=== PATIENT | female | born 1985 | race Caucasian/White ===

== ENCOUNTER 2017-08-30 15:25 | Inpatient (IN) | payer MEDICAID ==
--- NOTE | 2017-08-30 16:18 | ED Physician Chart ---
ED Chief Complaint/HPI - Patient Information Date Seen:: 08/30/17 Time Seen:: 16:05 Chief Complaint:: abdominal pain History of Present Illness:: Patient developed right lower quadrant abdominal pain at 1600 yesterday. She has no vomiting or diarrhea. She denies dysuria. Ambulation increases the pain. She did not take her temperature. Her last normal menstrual period started 4 days ago. Allergies:: Allergies Allergy/AdvReac Type Severity Reaction Status Date / Time No Known Allergies Allergy Verified 08/30/17 16:04 Vitals:: Vital Signs - 8 hr 08/30/17 15:57 Temp 98.9 F HR 67 RR 16 BP 93/69 O2 Sat % 98 Historian:: Patient Review:: Nurse's Note Reviewed ED Review of Systems - Review of Systems General/Constitutional: No fever, No chills Skin: No skin lesions Head: No headache Eyes: No loss of vision ENT: No earache Neck: No neck pain Cardio Vascular: No chest pain, No palpitations Pulmonary: No SOB GI: Pain G/U: No dysuria, No frequency, No hematuria Environmental Marketer: No vaginal discharge, No abnormal vaginal bleed Endocrine: No polyuria, No polydipsia Psychiatric: No prior psych history Hematopoietic: No bruising Allergic/Immuno: Urticaria Neurological: No syncope ED Past Medical History - Past Medical History Past Medical History: No significant medical hx Family History: None Social History: Non Smoker, No Alcohol Surgical History: , other (2 sections) Psychiatricy History: None Medication: None Family Medical History - Family Member Mother History Unknown: Yes ED Physical Exam - Physical Examination General/Constitutional: Well-developed, well-nourished, Alert, No distress Head: Atraumatic Eyes: Lids, conjuctiva normal, PERRL Skin: Nl inspection, No rash, No skin lesions, No ecchymosis ENMT: External ears, nose nl, Oropharynx nl, Tonsils nl Neck: No nuchal rigidity Respiratory: Nl effort/Exclusion, Clear to Auscultation Cardio Vascular: RRR, No murmur, gallop, rubs GI: No organomegaly, No hernia, Normal BS's, Nondistended Other GI comments:: Right lower quadrant tenderness with rebound Other comments:: Bimanual pelvic exam: No cervical motion or adnexal tenderness; uterus not enlarged to palpation Extremities: Normal digits & nails Neuro/Psych: No focal deficits Misc: Normal back ED Labs/Radiology/EKG Results - Lab Results Results: Laboratory Results - last 24 hr 08/30/17 08/30/17 08/30/17 15:50 15:50 16:10 WBC 7.4 RBC 4.18 Hgb 12.9 Hct 38.3 L MCV 91.6 MCH 30.9 MCHC Differential 33.7 RDW 12.3 Plt Count 182 MPV 7.7 Neutrophils % 63.6 Lymphocytes % 25.3 Monocytes % 8.3 Eosinophils % 2.7 Basophils % 0.1 Sodium Potassium Chloride Carbon Dioxide Anion Gap BUN Creatinine Est GFR ( Amer) Est GFR (Non-Af Amer) BUN/Creatinine Ratio Glucose Calcium Magnesium Urine Source MIDSTREAM Urine Color YELLOW Urine Clarity CLEAR Urine pH 5.5 Ur Specific [place] >= 1.030 Urine Protein TRACE Urine Glucose (UA) NEGATIVE Urine Ketones TRACE Urine Blood MODERATE H Urine Nitrate NEGATIVE Urine Bilirubin SMALL H Urine Urobilinogen 0.2 Ur Leukocyte Esterase NEGATIVE Urine RBC 5-10 H Urine WBC NONE SEEN Ur Epithelial Cells FEW Urine Bacteria NONE SEEN Urine Test NEGATIVE 08/30/17 16:10 WBC RBC Hgb Hct MCV MCH MCHC Differential RDW Plt Count MPV Neutrophils % Lymphocytes % Monocytes % Eosinophils % Basophils % Sodium 133 L Potassium 3.5 Chloride 99 Carbon Dioxide 28.5 Anion Gap 9.0 BUN 9 Creatinine 0.5 L Est GFR ( Amer) > 60.0 Est GFR (Non-Af Amer) > 60.0 BUN/Creatinine Ratio 18.0 Glucose 78 Calcium 9.5 Magnesium 2.1 Urine Source Urine Color Urine Clarity Urine pH Ur Specific [place] Urine Protein Urine Glucose (UA) Urine Ketones Urine Blood Urine Nitrate Urine Bilirubin Urine Urobilinogen Ur Leukocyte Esterase Urine RBC Urine WBC Ur Epithelial Cells Urine Bacteria Urine Test Comments:: CT abdomen and pelvis showed prominent appendix with appendicolith and slight haziness of adjacent fat suggestive of appendicitis. - EKG Interpretations Rate & Rhythm: normal sinus rhythm [place]: normal axis ED Assessment - Assessment General Assessment: Patient rechecked twice last time at about 1745 in both eyes patient had right lower quadrant tenderness with rebound. I spoke to Dr. Marquez at 1750 and he wishes the patient admitted to the primary care doctor on-call and he will be a design sales consultant. Dr. Andersen paged at about [phone]. ED Septic Shock - <6hrs of presentation: Vital Signs: Vital Signs - 8 hr 08/30/17 15:57 Temp 98.9 F HR 67 RR 16 BP 93/69 O2 Sat % 98 ED Reassessment (Disposition) - Reassessment Reassessment Condition:: Unchanged - Diagnosis Diagnosis:: Acute appendicitis - Patient Disposition Admitted to:: Med/Surg Spoke to:: najma Andersen Admitting Medical Physician:: Najma Andersen Condition at Disposition:: Stable, Unchanged
[2017-08-30 16:20] LABS: URINE MICROSCOPIC INDICATED? YES; URINE SOURCE MIDSTREAM
[2017-08-30 16:22] LABS: % BASOPHILS 0.1 % (0.0-2.0); % EOSINOPHILS 2.7 % (0.0-5.0); % LYMPHOCYTES 25.3 % (20.0-50.0); % MONOCYTES 8.3 % (2.0-10.0); % NEUTROPHILS 63.6 % (40.0-80.0); EOSINOPHILE ABSOLUTE 0.2 Th/cmm (0.1-0.4); HEMATOCRIT 38.3 % (41.0-60); HEMOGLOBIN 12.9 gm/dL (12-16); LYMPHOCYTE ABSOLUTE 1.9 Th/cmm (1.5-3.0); MEAN CELL VOLUME 91.6 fl (81-100); MEAN CORPUSCULAR HEMOGLOBIN 30.9 pg (27.0-31.0); MEAN CORPUSCULAR HGB CONC 33.7 pg (28.0-36.0); MEAN PLATELET VOLUME 7.7 fl; MONOCYTE ABSOLUTE 0.6 Th/cmm (0.3-1.0); NEUTROPHILE ABSOLUTE 4.7 Th/cmm (1.8-8.0); PLATELET COUNT 182 Th/cmm (150-400); RED BLOOD COUNT 4.18 Mil/cmm (3.80-5.10); RED CELL DISTRIBUTION WIDTH 12.3 % (11.5-20.0); WHITE BLOOD COUNT 7.4 Th/cmm (4.8-10.8)
[2017-08-30 16:23] LABS: URINE BILIRUBIN SMALL (NEGATIVE); URINE BLOOD MODERATE (NEGATIVE); URINE GLUCOSE (UA) NEGATIVE (NEGATIVE); URINE KETONE TRACE mg/dL (NEGATIVE); URINE LEUKOCYTE ESTERASE NEGATIVE (NEGATIVE); URINE NITRATE NEGATIVE (NEGATIVE); URINE PH 5.5 (4.6 - 8.0); URINE PROTEIN TRACE mg/dL (NEGATIVE); URINE UROBILINOGEN 0.2 E.U./dL (0.2 - 1.0)
[2017-08-30 16:30] LABS: URINE CLARITY CLEAR (CLEAR); URINE COLOR YELLOW
[2017-08-30 16:35] LABS: URINE BACTERIA NONE SEEN /hpf (NONE SEEN); URINE EPITHELIAL CELLS FEW /lpf (FEW); URINE WBC NONE SEEN /hpf (0-5)
[2017-08-30 16:40] LABS: BUN - UREA NITROGEN 9 mg/dL (7-25); CALCIUM SERUM 9.5 mg/dL (8.6-10.3); CARBON DIOXIDE 28.5 mEq/L (21.0-31.0); CHLORIDE 99 mEq/L (98-107); CREATININE - SERUM 0.5 mg/dL (0.6-1.2); GFR AFRICAN-AMERICAN > 60.0 ml/min (>90); GFR NON AFRICAN-AMERICAN > 60.0 ml/min; GLUCOSE 78 mg/dL (70-105); MAGNESIUM 2.1 mg/dL (1.9-2.7); POTASSIUM SERUM 3.5 mEq/L (3.5-5.1); SODIUM SERUM 133 mEq/L (136-145)
[2017-08-30] MEDS ORDERED: Morphine Sulfate 4 mg/mL 1mL Syr ONE (18:01)
[2017-08-30] MEDS ORDERED: Sodium Chloride 0.9% 1,000 ML IV ONE (18:01)
[2017-08-30] MEDS ORDERED: Morphine Sulfate 4 mg/mL 1mL Syr IV STA (18:03)
[2017-08-30] MEDS ORDERED: Piperacillin Sodium/Tazobact 3.375 gm Vial IV ONE (18:12)
[2017-08-30] MEDS ORDERED: D5-0.45NS 1,000 ML IV SCH (18:45)
[2017-08-30] MEDS ORDERED: metroNIDAZOLE 500mg/NS 100mL 500 MG/100 ML BAG IV ONE (20:43)
[2017-08-30] MEDS: Morphine Sulfate 2 mg/mL 1mL Syr IV PRN (21:26)
[2017-08-30] MEDS: metroNIDAZOLE 500mg/NS 100mL 500 MG in Premix Fluid 1 BAG IV SCH (21:27)
[2017-08-31] MEDS: Morphine Sulfate 2 mg/mL 1mL Syr IV PRN ×3 (02:16→16:43)
[2017-08-31] MEDS ORDERED: metroNIDAZOLE 500mg/NS 100mL 500 MG/100 ML BAG IV ONE (03:42)
[2017-08-31 04:03] VITALS: BP 96/58
[2017-08-31] MEDS: metroNIDAZOLE 500mg/NS 100mL 500 MG in Premix Fluid 1 BAG IV SCH ×3 (04:55→20:45)
[2017-08-31 06:49] LABS: % BASOPHILS 0.1 % (0.0-2.0); % EOSINOPHILS 3.3 % (0.0-5.0); % LYMPHOCYTES 31.1 % (20.0-50.0); % MONOCYTES 11.1 % (2.0-10.0); % NEUTROPHILS 54.4 % (40.0-80.0); EOSINOPHILE ABSOLUTE 0.2 Th/cmm (0.1-0.4); HEMATOCRIT 35.4 % (41.0-60); HEMOGLOBIN 11.8 gm/dL (12-16); LYMPHOCYTE ABSOLUTE 1.7 Th/cmm (1.5-3.0); MEAN CELL VOLUME 91.3 fl (81-100); MEAN CORPUSCULAR HEMOGLOBIN 30.5 pg (27.0-31.0); MEAN CORPUSCULAR HGB CONC 33.4 pg (28.0-36.0); MEAN PLATELET VOLUME 7.7 fl; MONOCYTE ABSOLUTE 0.6 Th/cmm (0.3-1.0); NEUTROPHILE ABSOLUTE 2.9 Th/cmm (1.8-8.0); PLATELET COUNT 163 Th/cmm (150-400); RED BLOOD COUNT 3.88 Mil/cmm (3.80-5.10); RED CELL DISTRIBUTION WIDTH 12.5 % (11.5-20.0)
[2017-08-31 06:54] LABS: WHITE BLOOD COUNT 5.4 Th/cmm (4.8-10.8)
[2017-08-31 06:59] LABS: INR 0.96 (0.5-1.4)
[2017-08-31 07:06] LABS: ALB/GLOB RATIO 1.4 (1.0-1.8); ALBUMIN 3.7 gm/dL (3.7-5.3); ALKALINE PHOSPHATASE 36 U/L (34-104); ANION GAP 5.6 (7.0-16.0); BILIRUBIN,TOTAL 0.6 mg/dL (0.3-1.0); BUN - UREA NITROGEN 7 mg/dL (7-25); CALCIUM SERUM 8.4 mg/dL (8.6-10.3); CARBON DIOXIDE 28.1 mEq/L (21.0-31.0); CHLORIDE 103 mEq/L (98-107); CREATININE - SERUM 0.5 mg/dL (0.6-1.2); GFR AFRICAN-AMERICAN > 60.0 ml/min (>90); GFR NON AFRICAN-AMERICAN > 60.0 ml/min; GLUCOSE 92 mg/dL (70-105); MAGNESIUM 2.1 mg/dL (1.9-2.7); POTASSIUM SERUM 3.7 mEq/L (3.5-5.1); SGOT 12 U/L (13-39); SGPT/ALT 7 U/L (7-52); SODIUM SERUM 133 mEq/L (136-145); TOTAL PROTEIN,SERUM 6.3 gm/dL (6.0-8.3)
[2017-08-31] MEDS ORDERED: fentaNYL Citrate 100 mcg/2mL Vial ONE (07:28)
--- NOTE | 2017-08-31 08:23 | Diagnostic Imaging Report ---
Exam: CT examination abdomen pelvis. HISTORY: Right lower quadrant pain. Total DLP equals 389 CTDI equals 9.0. Findings: Multiple contiguous thin section of the abdomen pelvis obtained from lower thorax to pubic symphysis without administration intravenous contrast material no prior studies available comparison. The study demonstrates normal aeration of lung parenchyma the bases. The liver and spleen intact. The pancreas is normal. The gallbladder is distended. The joint glands are normal. The kidneys demonstrate no evidence of acute or nephrolithiasis. Large amount of fecal content is noted throughout the colon. There is evidence of acute appendicitis with 7 mm appendicolith impacted centimeter appendix. The uterus is normal. The urinary bladder is intact. Bony structures demonstrate no evidence for lytic or blastic process. IMPRESSION Acute appendicitis with 7mm appendicolith impacted in the proximal portion of appendix.
--- NOTE | 2017-08-31 08:25 | Diagnostic Imaging Report ---
Exam: Ultrasound examination of pelvis. HISTORY: Rectal portable pain. Findings: Real-time ultrasound summation of pelvis was performed multiple planes. The study demonstrates normal echogenicity uterus measuring 8.1 x 4 x 5.8 cm diameter with endometrial thickness of 1 mm. Small bowel within cysts are noted in the cervical area. Right ovary measures 2.9 x 2.4 cm Left ovary measures 3.1 x 2.9 cm. Bilateral follicular cysts appreciated with a right ovarian cyst measuring 1.3 cm and largest left ovarian cyst measuring 1.7 cm No free fluid is noted in the pelvis. IMPRESSION: Essentially unremarkable examination of pelvis Bilateral follicular cysts
--- NOTE | 2017-08-31 08:28 | Diagnostic Imaging Report ---
Exam: Limited ultrasound examination right lower quadrant HISTORY: Appendicitis. Findings: Real-time ultrasound examination right lower quadrant was performed multiple planes. The study is inconclusive due to large amount of intra-abdominal bowel gas. The appendix is not visualized. IMPRESSION: inconclusive examination right lower quadrant.
--- NOTE | 2017-08-31 09:42 | Consultation ---
DATE OF CONSULTATION: 08/31/2017 SURGICAL CONSULTATION REFERRING PHYSICIAN: Dr. Andersen. REASON FOR CONSULTATION: Abdominal pain. HISTORY OF PRESENT ILLNESS: Thank you for referring this patient to me. This is a 32-year-old female who came in because of abdominal pain day prior to admission. No nausea or vomiting. There was no dysuria as well. PAST MEDICAL HISTORY: Unremarkable except for 2 sections. She denies allergy. Does not take any medications on a regular basis. LABORATORY STUDIES: The CBC is normal. Chemistry likewise. CT scan of the abdomen shows appendicolith. PHYSICAL EXAMINATION: The abdomen shows severe tenderness and rebound in right lower quadrant. Scar from previous section is noted. Informed consent discussed with the patient regarding the procedure consist of laparoscopic appendectomy, possible complications including bleeding, infection, bowel injury. This was related to anesthesia discussed. The patient, however, speaks mostly Belarusian, but does understand some Romansh. JOB# [id number]
--- NOTE | 2017-08-31 09:46 | Operative Report ---
DATE OF SURGERY: 08/31/2017 PREOPERATIVE DIAGNOSES: 1. Acute appendicitis with appendicolith. 2. Two previous sections. POSTOPERATIVE DIAGNOSES: 1. Acute appendicitis with appendicolith. 2. Two previous sections. OPERATION DONE: Laparoscopic appendectomy. SURGEON: Alma Agrawal MD ANESTHESIA: General. ANESTHESIOLOGIST: Tavo. ESTIMATED BLOOD LOSS: 10 mL. INDICATIONS FOR SURGERY: Abdominal pain a day prior to admission with CT scan showing findings consistent with appendicitis with appendicolith. OPERATIVE FINDINGS: Swollen appendix. No phlegmon and no gangrenous area. DESCRIPTION OF PROCEDURE: The patient was given general anesthesia. The abdomen was prepped with ChloraPrep and draped in appropriate manner. An incision was made below the umbilicus along the skin line. A Veress needle was inserted. Insufflation and insufflation of CO2 was carried successfully. A 10 mm trocar was placed through this and the scope was introduced. There was good visualization of the intra-abdominal cavity. The lower abdomen was particularly inspected because of the 2 previous sections and adhesions were found, which was not the midline or in the area of the trocar site insertion proposed planned. A 5-mm trocar was placed in the lower abdomen at the midline and this did not get in the way of the adhesions. The 12 mm was placed in the left flank. Again, no adhesions were seen in this area. The operating table was lowered at the head and turned to the left side. The appendix was retrocecal, brought out into view. The mesoappendix was serially transected utilizing EnSeal. A MELODY instrument was then used to transect the base of the appendix, following which there was some bleeding which was controlled with clip applications. Irrigation with saline solution confirmed good hemostasis. The appendix was removed in an Endobag. Another inspection was done and all fluid was aspirated from the periappendiceal area. Incision was closed with subcuticular suture of 4-0 Vicryl following infiltration with 0.5% Marcaine with epinephrine. The patient tolerated the procedure well. JOB# [id number]
[2017-09-01] MEDS: metroNIDAZOLE 500mg/NS 100mL 500 MG in Premix Fluid 1 BAG IV SCH (04:40)
[2017-09-01] MEDS: Morphine Sulfate 2 mg/mL 1mL Syr IV PRN (04:40)
[2017-09-01 05:45] LABS: % BASOPHILS 0.1 % (0.0-2.0); % EOSINOPHILS 2.6 % (0.0-5.0); % LYMPHOCYTES 25.8 % (20.0-50.0); % MONOCYTES 7.7 % (2.0-10.0); % NEUTROPHILS 63.8 % (40.0-80.0); EOSINOPHILE ABSOLUTE 0.2 Th/cmm (0.1-0.4); HEMATOCRIT 33.7 % (41.0-60); HEMOGLOBIN 11.3 gm/dL (12-16); LYMPHOCYTE ABSOLUTE 1.6 Th/cmm (1.5-3.0); MEAN CELL VOLUME 91.1 fl (81-100); MEAN CORPUSCULAR HEMOGLOBIN 30.4 pg (27.0-31.0); MEAN CORPUSCULAR HGB CONC 33.4 pg (28.0-36.0); MEAN PLATELET VOLUME 7.6 fl; MONOCYTE ABSOLUTE 0.5 Th/cmm (0.3-1.0); NEUTROPHILE ABSOLUTE 3.9 Th/cmm (1.8-8.0); PLATELET COUNT 176 Th/cmm (150-400); RED CELL DISTRIBUTION WIDTH 12.5 % (11.5-20.0); WHITE BLOOD COUNT 6.2 Th/cmm (4.8-10.8)
[2017-09-01 06:02] LABS: ALB/GLOB RATIO 1.4 (1.0-1.8); ALBUMIN 3.5 gm/dL (3.7-5.3); ALKALINE PHOSPHATASE 41 U/L (34-104); ANION GAP 6.5 (7.0-16.0); BILIRUBIN,TOTAL 0.7 mg/dL (0.3-1.0); BUN - UREA NITROGEN 4 mg/dL (7-25); CALCIUM SERUM 8.6 mg/dL (8.6-10.3); CARBON DIOXIDE 29.1 mEq/L (21.0-31.0); CHLORIDE 103 mEq/L (98-107); CREATININE - SERUM 0.5 mg/dL (0.6-1.2); GFR AFRICAN-AMERICAN > 60.0 ml/min (>90); GFR NON AFRICAN-AMERICAN > 60.0 ml/min; GLUCOSE 97 mg/dL (70-105); MAGNESIUM 1.9 mg/dL (1.9-2.7); POTASSIUM SERUM 3.6 mEq/L (3.5-5.1); SGOT 12 U/L (13-39); SGPT/ALT 6 U/L (7-52); SODIUM SERUM 135 mEq/L (136-145)
--- NOTE | 2017-09-01 09:47 | General Progress Note ---
Subjective - Review of Systems Service Date: 09/01/17 Events since last encounter: doing well labs ok may DC on oral antibiotics, may shower to my office in 10 days, call for appointment Objective - Results Result Diagrams: 09/01/17 05:20 09/01/17 05:20 Recent Labs: Laboratory Last Values WBC 6.2 Th/cmm (4.8-10.8) 09/01/17 05:20 RBC 3.70 Mil/cmm (3.80-5.10) L 09/01/17 05:20 Hgb 11.3 gm/dL (12-16) L 09/01/17 05:20 Hct 33.7 % (41.0-60) L 09/01/17 05:20 MCV 91.1 fl (81-100) 09/01/17 05:20 MCH 30.4 pg (27.0-31.0) 09/01/17 05:20 MCHC Differential 33.4 pg (28.0-36.0) 09/01/17 05:20 RDW 12.5 % (11.5-20.0) 09/01/17 05:20 Plt Count 176 Th/cmm (150-400) 09/01/17 05:20 MPV 7.6 fl 09/01/17 05:20 Neutrophils % 63.8 % (40.0-80.0) 09/01/17 05:20 Lymphocytes % 25.8 % (20.0-50.0) 09/01/17 05:20 Monocytes % 7.7 % (2.0-10.0) 09/01/17 05:20 Eosinophils % 2.6 % (0.0-5.0) 09/01/17 05:20 Basophils % 0.1 % (0.0-2.0) 09/01/17 05:20 PT 10.0 SECONDS (9.5-11.5) 08/31/17 06:05 INR 0.96 (0.5-1.4) 08/31/17 06:05 PTT (Actin FS) 30.4 SECONDS (26.0-38.0) 08/31/17 06:05 Sodium 135 mEq/L (136-145) L 09/01/17 05:20 Potassium 3.6 mEq/L (3.5-5.1) 09/01/17 05:20 Chloride 103 mEq/L (98-107) 09/01/17 05:20 Carbon Dioxide 29.1 mEq/L (21.0-31.0) 09/01/17 05:20 Anion Gap 6.5 (7.0-16.0) L 09/01/17 05:20 BUN 4 mg/dL (7-25) L 09/01/17 05:20 Creatinine 0.5 mg/dL (0.6-1.2) L 09/01/17 05:20 Est GFR ( Amer) > 60.0 ml/min (>90) 09/01/17 05:20 Est GFR (Non-Af Amer) > 60.0 ml/min 09/01/17 05:20 BUN/Creatinine Ratio 8.0 09/01/17 05:20 Glucose 97 mg/dL (70-105) 09/01/17 05:20 POC Glucose 78 MG/DL (70 - 105) 08/31/17 06:04 Calcium 8.6 mg/dL (8.6-10.3) 09/01/17 05:20 Magnesium 1.9 mg/dL (1.9-2.7) 09/01/17 05:20 Total Bilirubin 0.7 mg/dL (0.3-1.0) 09/01/17 05:20 AST 12 U/L (13-39) L 09/01/17 05:20 ALT 6 U/L (7-52) L 09/01/17 05:20 Alkaline Phosphatase 41 U/L (34-104) 09/01/17 05:20 Total Protein 6.0 gm/dL (6.0-8.3) 09/01/17 05:20 Albumin 3.5 gm/dL (3.7-5.3) L 09/01/17 05:20 Globulin 2.5 gm/dL 09/01/17 05:20 Albumin/Globulin Ratio 1.4 (1.0-1.8) 09/01/17 05:20 Urine Source MIDSTREAM 08/30/17 15:50 Urine Color YELLOW 08/30/17 15:50 Urine Clarity CLEAR (CLEAR) 08/30/17 15:50 Urine pH 5.5 (4.6 - 8.0) 08/30/17 15:50 Ur Specific [place] >= 1.030 (1.005-1.030) 08/30/17 15:50 Urine Protein TRACE mg/dL (NEGATIVE) 08/30/17 15:50 Urine Glucose (UA) NEGATIVE mg/dL (NEGATIVE) 08/30/17 15:50 Urine Ketones TRACE mg/dL (NEGATIVE) 08/30/17 15:50 Urine Blood MODERATE (NEGATIVE) H 08/30/17 15:50 Urine Nitrate NEGATIVE (NEGATIVE) 08/30/17 15:50 Urine Bilirubin SMALL (NEGATIVE) H 08/30/17 15:50 Urine Urobilinogen 0.2 E.U./dL (0.2 - 1.0) 08/30/17 15:50 Ur Leukocyte Esterase NEGATIVE (NEGATIVE) 08/30/17 15:50 Urine RBC 5-10 /hpf (0-5) H 08/30/17 15:50 Urine WBC NONE SEEN /hpf (0-5) 08/30/17 15:50 Ur Epithelial Cells FEW /lpf (FEW) 08/30/17 15:50 Urine Bacteria NONE SEEN /hpf (NONE SEEN) 08/30/17 15:50 Urine Test NEGATIVE 08/30/17 15:50 - Physical Exam Vitals and I&O: Vital Signs Temp 97.8 F 09/01/17 07:40 Pulse 54 09/01/17 07:40 Resp 18 09/01/17 07:40 BP 96/62 09/01/17 07:40 Pulse Ox 98 09/01/17 07:40 Intake & Output 08/31/17 09/01/17 09/01/17 18:59 06:59 18:59 Intake Total 350 600 Output Total 0 Balance 350 600 Weight (lbs) 59.421 kg 59.421 kg Intake: Intake, IV Amount 100 100 metroNIDAZOLE 500mg/NS 100 100 100mL 500 mg In Premix Fluid 1 bag @ 100 mls/hr IV Q8HR [facility] Rx#:[id number] Oral 250 500 Output: Urine/Stool Mix 0 Other: # Voids 3 4 # Bowel Movements 0 0 Active Medications: Current Medications Dextrose/Sodium Chloride (D5-0.45ns) 1,000 mls @ 75 mls/hr IV .[id number] [place] Stop: 10/29/17 18:44 Last Admin: 08/30/17 21:27 Dose: 75 mls/hr Metronidazole 500 mg/ (Miscellaneous) 100 mls @ 100 mls/hr IV Q8HR [place] Stop: 10/29/17 20:59 Last Admin: 09/01/17 04:40 Dose: 100 mls/hr Morphine Sulfate (Morphine) 2 mg IV Q4H PRN PRN Reason: Abdominal Pain Stop: 10/29/17 18:36 Last Admin: 09/01/17 04:40 Dose: 2 mg Ondansetron HCl (Zofran) 4 mg IV Q6H PRN PRN Reason: Nausea Stop: 10/29/17 18:37 - Procedures Procedures: Procedures Procedure Code Date LAPAROSCOPY APPENDECTOMY 20433 08/30/17 RESECTION OF APPENDIX, PERCUTANEOUS ENDOSCOPIC APPROACH [id number] 08/30/17
--- NOTE | 2017-09-01 15:21 | Discharge Summary ---
DATE OF DISCHARGE: 09/01/2017 ADMITTING DIAGNOSES: Acute appendicitis, hyponatremia and mild hematuria. DISCHARGE DIAGNOSES: Acute appendicitis, status post laparoscopic appendectomy and hyponatremia, improved and mild postop anemia. CONSULTANTS: Dr. Marquez. MAJOR PROCEDURES AND DIAGNOSTICS: Pelvic ultrasound done on 08/30/2017 showed essentially unremarkable examination of the pelvis. Bilateral follicular cyst. There was also abdominal ultrasound done on 08/30/2017 shows inconclusive examination of the right lower quadrant. Abdominal and pelvis CT done on 08/30/2017 shows acute appendicitis with a 7 mm appendicolith impacted in the proximal portion of the appendix and she underwent a laparoscopic appendectomy on 08/31/2017 with no postop complications. BRIEF HOSPITAL COURSE: 32-year-old female who presented to the ER with a 1-day history of right lower quadrant abdominal pain. She denied any nausea, vomiting, any dysuria, but reported pain with movement. She also apparently had anorexia. She presented to the ER where she underwent the above-mentioned procedures and was admitted to the medical surgical floor where she was placed on IV fluids and IV antibiotics. A surgical consult was asked for and she underwent the above-mentioned procedure without any complications. Postop, she has done well. She has tolerated her p.o. as well and also has had flatus and bowel movements. Her pain has been controlled with IV morphine and she has remained afebrile since admission. DISCHARGE MEDICATIONS: Cipro 250 mg b.i.d. x 7 days, Flagyl 500 mg q.i.d. x 7 days, Zofran 4 mg q. 4 hours p.r.n. for nausea and vomiting and Tylenol 500 mg 1 tab p.o. q. 4 hours p.r.n. for pain. CONDITION ON DISCHARGE: Stable. DISPOSITION: The patient was discharged home today. I wrote a note for her not to be excused from work for the days that she was in the hospital. JOB# [id number] [email or web address]
--- NOTE | 2017-09-03 11:09 | History & Physical ---
ADMIT DATE: 08/31/2017 CHIEF COMPLAINT: Right lower quadrant abdominal pain since 4:00 p.m. the day prior to admission. HISTORY OF PRESENT ILLNESS: This is a 32-year-old female who presented to the ER with the above-mentioned complaints. She denied any nausea, vomiting or diarrhea and she also denied any fever or chills. She reports poor p.o. intake. Pertinent findings at the ER included a CT of the abdomen and pelvis showing acute appendicitis with a 7 mm appendolith impacted in the proximal position of the appendix. She also had an abdominal ultrasound showing inconclusive examination of the right lower quadrant. The patient has been admitted to the medical floor and a surgical eval has been asked for possible appendectomy. PAST MEDICAL HISTORY: Denies. PAST SURGICAL HISTORY: Two C-sections. FAMILY HISTORY: Noncontributory. SOCIAL HISTORY: Nonsmoker, no alcohol. Lives at home with family. ALLERGIES: NKDA. OUTPATIENT MEDICATIONS: None. REVIEW OF SYSTEMS: CONSTITUTIONAL: No recent weight loss. No fever or chills. CARDIAC: No chest pain, palpitations. PULMONARY: No cough, phlegm production. GASTROINTESTINAL: Please refer to the HPI. GENITOURINARY: No bladder habit changes. NEUROLOGIC: No changes in vision. PHYSICAL EXAMINATION: VITAL SIGNS: Temperature 97.0, afebrile, pulse 62, respirations 17, BP 100/63, satting 99% on room air. GENERAL: Well-developed, well-nourished, not in acute distress. HEAD AND NECK: Normocephalic, atraumatic. Pupils reactive to light. Extraocular movements are intact. NECK: There is no JVD or LAD. CARDIOVASCULAR: Regular rate and rhythm without any murmurs. LUNGS: Clear to auscultation bilaterally with no audible rhonchi or wheezing. GASTROINTESTINAL: Soft, supple tenderness to palpation on the right lower quadrant with no rebound. There are hypoactive bowel sounds at this time. No edema in lower extremities. NEUROLOGIC: Nonfocal. LABORATORY DATA: On admission, white count 7.4, rest of the CBC is essentially within normal limits. Sodium 133. Rest of the chemistry was also within normal limits. AST 12, ALT 7, otherwise within normal limits. On the UA shows moderate blood, small bilirubin, 5-10 rbc's, negative nitrite and negative leukocyte esterase. DIAGNOSTICS: Please refer to the HPI. IMPRESSION: Acute appendicitis. PLAN: The patient has been admitted to the medical/surgical floor for further management and care. She has been placed on D5 half NS at 75 mL per hour and is currently n.p.o. She has been placed on Flagyl, Zosyn and prn's including Zofran and morphine. As noted above a surgical consult has been asked for further management and care. [facility]# [id number] [facility]
--- NOTE | 2017-09-03 14:57 | Pathology Report ---
[id number] Collection Date: 08/31/2017 Surgeon: Dr. Zachary Marquez Specimen Description: Appendix Gross Description: Received in formalin is a 7 cm in length x 0.8 cm in diameter appendix with areas of martin-george exudate seen on the outer surface of the specimen. Sectioning shows an intact appendix wall and lumen with no evidence for perforation appreciated. Steel Fabricating Supervisor sections are submitted in one cassette. Microscopic Description: The histologic sections show appendix with an intact mucosa and muscular wall. There is acute inflammation seen consisting of neutrophils extending through the entire specimen. Diagnosis: Acute appendicitis. [facility]# [id number]
== END 2017-09-01 13:00 | disposition home or self-care (01) | DRG 234 ==
LOC: ER 15:25 → MSI 18:00
PROVIDERS: ADMIT Internal Medicine; ATTEND Internal Medicine
PROC: 0DTJ4ZZ Resection of Appendix, Percutaneous Endoscopic Approach (ICD-10-PCS; principal; 2017-08-31)
DX: K35.80 Unspecified acute appendicitis (principal); E87.1 Hypo-osmolality and hyponatremia; K38.1 Appendicular concretions; D64.9 Anemia, unspecified; N83.02 Follicular cyst of left ovary; N83.01 Follicular cyst of right ovary
CPT/HCPCS: 36415-UA; 76705-TC; 76856-TC; 80048-TC; 80053-TC; 81001-TC; 81025-TC; 82948-90; 83735-TC; 85025-TC; 85610-TC; 85730-TC; 87086-90; 88304-TC; 90799; 93005; J1885; J2270; J2405; J2543; J3010; J7030; X6258